=== PATIENT | female | born 1935 | race Caucasian/White ===

== ENCOUNTER 2016-06-01 09:38 | Emergency (ER) | payer MEDICARE, OTHER ==
--- NOTE | 2016-06-01 11:46 | ER Document Report ---
ED General - General Mode of Arrival: Ambulatory Information source: Patient, Relative - daughter TRAVEL OUTSIDE OF THE [place] IN LAST 30 DAYS: No - HPI Patient complains to provider of: right lower back pain Onset: Last week Associated symptoms: Other - See above <JACKIE SOUTH - Last Filed: 06/01/16 11:37> <RAFAELMARY LOU AnnJUDY - Last Filed: 06/01/16 14:18> - General Chief Complaint: Low Back Pain Stated Complaint: right low back pain Notes: Patient is a 80 year old female who presents to the emergency department complaining of right sided lower back pain onset 1 week ago. Patient states that she began to feel "not right" and nauseated about 2 weeks ago (denies vomiting) and she didn't experience much pain until last Thursday. Patient saw her PCP on Thursday and ruled out UTI, patient was told to change her 1 Ibuprofen a day to 2 a day and to apply a hot pad. Patient reports that the pain eased but became much worse on Thursday. Patient describes the pain as waxing and waning causing her to not be able to sit still, when it does come on it radiates into her right lower quadrant and abdomen and when she takes a deep breath she feels pain in her right upper quadrant. PCP: Dr. Enciso (JACKIE SOUTH) - Related Data Allergies/Adverse Reactions: kiwi [Kiwi (Actinidia Chinensis)] Allergy (Unknown, Verified 03/22/14 16:05) Anaphylaxis latex [Latex] Allergy (Unknown, Verified 03/22/14 16:05) Past Medical History - General Information source: Patient - Social History Smoking Status: Never Smoker Frequency of alcohol use: None Drug Abuse: None Lives with: Alone Family History: Reviewed & Not Pertinent Patient has suicidal ideation: No Patient has homicidal ideation: No - Past Medical History Cardiac Medical History: Reports: Hx Hypertension - CONTROLLED Past Surgical History: Reports: Hx Hysterectomy, Hx Orthopedic Surgery - right knee <JACKIE SOUTH - Last Filed: 06/01/16 11:37> Review of Systems - Review of Systems Constitutional: No symptoms reported EENT: No symptoms reported Cardiovascular: No symptoms reported Respiratory: No symptoms reported Gastrointestinal: See HPI, Abdominal pain, Nausea. denies: Vomiting Genitourinary: See HPI, Flank pain Female Genitourinary: No symptoms reported Musculoskeletal: See HPI, Back pain Skin: No symptoms reported Hematologic/Lymphatic: No symptoms reported Neurological/Psychological: No symptoms reported -: Yes All other systems reviewed and negative <JACKIE SOUTH - Last Filed: 06/01/16 11:37> Physical Exam - Vital signs Interpretation: Normal - General General appearance: Appears well, Alert - HEENT Head: Normocephalic, Atraumatic - Respiratory Respiratory status: No respiratory distress - Abdominal Inspection: Obese Distension: No distension Bowel sounds: Normal Tenderness: Nontender Organomegaly: No organomegaly - Back Back: Tender - Tenderness to palpation of lower right flank lumbar lateral area and over iliac crest - Extremities General upper extremity: Normal inspection, Normal ROM, Normal strength General lower extremity: Normal inspection, Normal ROM, Normal strength, Normal weight bearing - Neurological Neuro grossly intact: Yes Cognition: Normal Orientation: AAOx4 [place] Coma Scale Eye Opening: Spontaneous [place] Coma Scale Verbal: Oriented [place] Coma Scale Motor: Obeys Commands [place] Coma Scale Total: 15 Speech: Normal Motor strength normal: LUE, RUE, LLE, RLE - Psychological Associated symptoms: Normal affect, Normal mood - Skin Skin Temperature: Warm Skin Moisture: Dry Skin Color: Normal <JACKIE SOUTH - Last Filed: 06/01/16 11:37> - Back Back: Other - No skin rash to suggest shingles. <JUDY HALL - Last Filed: 06/01/16 14:18> - Vital signs Vitals: Pulse Resp BP Pulse Ox 76 18 170/66 H 94 06/01/16 09:50 06/01/16 09:50 06/01/16 09:50 06/01/16 09:50 (JACKIE SOUTH) (JUDY HALL) Course - Laboratory Result Diagrams: 06/01/16 12:05 06/01/16 12:05 <JUDY HALL - Last Filed: 06/01/16 14:18> - Vital Signs Vital signs: Temp Pulse Resp BP Pulse Ox 98.7 F 76 18 170/66 H 94 06/01/16 09:54 06/01/16 09:50 06/01/16 09:50 06/01/16 09:50 06/01/16 09:50 (JACKIE SOUTH) (JUDY HALL) - Laboratory Laboratory results interpreted by me: 06/01/16 12:05 Chloride 96 L Carbon Dioxide 31 H Calcium 10.8 H (JUDY HALL) Discharge <BRANNONJACKIE - Last Filed: 06/01/16 11:37> <JUDY HALL - Last Filed: 06/01/16 14:18> - Discharge Clinical Impression: Right flank pain, Aneurysm of infrarenal abdominal aorta Condition: Stable Disposition: HOME, SELF-CARE Additional Instructions: Flank Pain: We weren't able to prove an exact cause for your flank pain. Pain in the flank can be caused by a muscle strain or spasm. Sometimes a kidney stone causes pain, but can't be found on our tests. Infection in the kidney should be evident on a urine test. Early shingles can occasionally cause flank pain, without the rash that proves the diagnosis. On rare occasions, disease of the pancreas, aorta, spleen, or colon can create pain in the flank. At this time, there's no evidence of a dangerous condition, and it seems safe for you to be at home. If the pain goes away and does not come back, no further testing will be needed. If pain persists, or becomes more severe, we may need to repeat some tests or order additional new testing. Blood in the urine, urgency to urinate frequently, and pain that radiates to the groin can indicate a kidney stone. Fever may mean that the pain is due to infection, either of the kidney or the colon (diverticulitis). If your pain is early shingles, you should develop an eruption of blisters in the painful area within a few days. Call the doctor or return if you have pain that is spreading or becoming more severe, pain that does not resolve with time, fever, or any other new symptoms. YOUR CT SCAN SHOWS A 2.4cm INFRA-RENAL AORTIC SACCULAR ANEURYSM. THERE WERE NO ABNORMALITIES TO EXPLAIN YOUR PAIN. THE PHYSICAL EXAM SUGGESTS THE PAIN IS COMING FROM THE FLANK AND LUMBAR MUSCLES. TAKE THE MEDICATIONS PRESCRIBED FOR PAIN AND MUSCLE SPASM. TRY MOIST HEAT TO THE PAINFUL MUSCLES. FOLLOW UP WITH DR. STEVENS THIS WEEK FOR RECHECK AND TO REVIEW YOUR CT SCAN AND LAB WORK. RETURN TO THE EMERGENCY ROOM IF ANY NEW OR WORSENING SYMPTOMS. Prescriptions: Cyclobenzaprine HCl [Flexeril 5 mg Tablet] 5 mg PO TID PRN #15 tablet PRN Reason: Oxycodone HCl/Acetaminophen [Percocet 5-325 mg Tablet] 1 tab PO ASDIR PRN #15 tablet PRN Reason: Referrals: SADI STEVENS MD [Primary Care Provider] - Follow up as needed Scribe Attestation: 06/01/16 14:18 I personally performed the services described in the documentation, reviewed and edited the documentation which was dictated to the scribe in my presence, and it accurately records my words and actions. (JUDY HALL) Scribe Documentation - Scribe Written by Rolo:: rolo Braun, 06/01/16, 1150 acting as scribe for :: Rafael <JACKIE SOUTH - Last Filed: 06/01/16 11:37>
[2016-06-01 12:14] LABS: ABSOLUTE BASOPHILS # (AUTO) 0.1 10^3/uL (0.0-0.2); ABSOLUTE EOSINOPHILS # (AUTO) 0.1 10^3/uL (0.0-0.6); ABSOLUTE LYMPHOCYTES (AUTO) 2.4 10^3/uL (0.5-4.7); ABSOLUTE MONOCYTES (AUTO) 1.2 10^3/uL (0.1-1.4); ABSOLUTE NEUT (AUTO) 6.5 10^3/uL (1.7-8.2); BASOPHILS % (AUTO) 0.7 % (0-2); EOSINOPHILS % (AUTO) 0.6 % (0-6); HEMATOCRIT 43.7 % (36.0-47.0); HEMOGLOBIN 14.7 g/dL (12.0-15.5); HGB HCT DIFFERENCE 0.4; LYMPHOCYTES % (AUTO) 23.2 % (13-45); MEAN CORPUSCULAR HGB CONC 33.6 g/dL (32.0-36.0); MEAN CORPUSCULAR VOLUME 92 fl (80-97); MONOCYTES % (AUTO) 11.6 % (3-13); RED BLOOD COUNT 4.74 10^6/uL (3.72-5.28); RED CELL DISTRIBUTION WIDTH 13.1 % (11.5-14.0); SEGMENTED NEUTROPHILS % (AUTO) 63.9 % (42-78); WHITE BLOOD COUNT 10.2 10^3/uL (4.0-10.5)
[2016-06-01 12:24] LABS: APPEARANCE,URINE CLEAR; BILIRUBIN,URINE NEGATIVE (NEGATIVE); GLUCOSE, URINE NEGATIVE (NEGATIVE); KETONES,URINE NEGATIVE (NEGATIVE); LEUKOCYTE ESTERASE,URINE NEGATIVE (NEGATIVE); NITRITE,URINE NEGATIVE (NEGATIVE); PROTEIN,URINE NEGATIVE (NEGATIVE); URINE SPECIFIC GRAVITY 1.006; UROBILINOGEN,URINE NEGATIVE mg/dL (<2.0)
[2016-06-01 12:35] LABS: ALANINE AMINOTRANSFERASE 29 U/L (9-52); ALBUMIN 4.5 g/dL (3.5-5.0); ALKALINE PHOSPHATASE 63 U/L (38-126); ANION GAP 15 (5-19); ASPARTATE AMINO TRANSFERASE 30 U/L (14-36); BILIRUBIN,TOTAL 0.7 mg/dL (0.2-1.3); BLOOD UREA NITROGEN 15 mg/dL (7-20); CALCIUM 10.8 mg/dL (8.4-10.2); CARBON DIOXIDE 31 mmol/L (22-30); CHLORIDE 96 mmol/L (98-107); CREATINE KINASE 37 U/L (30-135); CREATININE RESULT 0.55 mg/dL (0.52-1.25); GLUCOSE 109 mg/dL (75-110); LIPASE 90.7 U/L (23-300); POTASSIUM 3.6 mmol/L (3.6-5.0)
[2016-06-01 14:31] VITALS: BP 155/77
== END 2016-06-01 14:29 | disposition home or self-care (01) ==
LOC: ER 09:38
DX: I71.4 Abdominal aortic aneurysm, without rupture (principal); M54.5 Low back pain; R10.11 Right upper quadrant pain; R11.0 Nausea; I10 Essential (primary) hypertension; Z91.040 Latex allergy status; Z87.892 Personal history of anaphylaxis; Z91.018 Allergy to other foods; Z90.710 Acquired absence of both cervix and uterus
CPT/HCPCS: 36415; 76380; 80053; 81001; 82550; 82553; 83690; 85025; 99284

== ENCOUNTER 2017-04-04 14:17 | Observation (INO) | payer MEDICARE, OTHER ==
--- NOTE | 2017-04-04 14:24 | ER Document Report ---
ED Medical Screen (RME) - General Stated Complaint: STROK LIKE SYMPTOMS Time Seen by Provider: 04/04/17 14:21 TRAVEL OUTSIDE OF THE [place] IN LAST 30 DAYS: No - HPI Notes: 04/04/17 14:23 Patient coming in for intermittent slurred speech that has improved and then reappeared multiple times throughout the day. Called to the pivot dentist to evaluate the patient for ongoing stroke. Cranial nerves II through XII are intact patient is moving all 4 extremities no asymmetrical smile no slurred speech at this time. Stroke protocol will be placed in however at this time patient does not meet strict criteria as that looks like symptoms have resolved. - Related Data Allergies/Adverse Reactions: kiwi [Kiwi (Actinidia Chinensis)] Allergy (Unknown, Verified 03/22/14 16:05) Anaphylaxis latex [Latex] Allergy (Unknown, Verified 03/22/14 16:05) Past Medical History - Past Medical History Cardiac Medical History: Reports: Hx Hypertension - CONTROLLED Denies: Hx Heart Attack Pulmonary Medical History: Denies: Hx Asthma Neurological Medical History: Denies: Hx Cerebrovascular Accident, Hx Seizures Renal/ Medical History: Denies: Hx Peritoneal Dialysis GI Medical History: Denies: Hx Hepatitis, Hx Hiatal Hernia, Hx Ulcer Infectious Medical History: Denies: Hx Hepatitis Past Surgical History: Reports: Hx Hysterectomy, Hx Orthopedic Surgery - right knee. Denies: Hx Mastectomy, Hx Open Heart Surgery, Hx Pacemaker Review of Systems - Review of Systems Constitutional: No symptoms reported EENT: No symptoms reported Cardiovascular: No symptoms reported Respiratory: No symptoms reported Gastrointestinal: No symptoms reported Genitourinary: No symptoms reported Female Genitourinary: No symptoms reported Musculoskeletal: No symptoms reported Skin: No symptoms reported Hematologic/Lymphatic: No symptoms reported Neurological/Psychological: Speech impairment Physical Exam - Neurological Neuro grossly intact: Yes Cognition: Normal Orientation: AAOx4 [place] Coma Scale Eye Opening: Spontaneous [place] Coma Scale Verbal: Oriented [place] Coma Scale Motor: Obeys Commands [place] Coma Scale Total: 15 Speech: Normal Cranial nerves: Normal Motor strength normal: LUE, RUE, LLE, RLE 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
--- NOTE | 2017-04-04 14:49 | RADIOLOGY REPORT (SQ) ---
EXAM DESCRIPTION: CHEST SINGLE VIEW COMPLETED DATE/TIME: 04/04/2017 2:38 pm REASON FOR STUDY: cxr COMPARISON: 2010 NUMBER OF VIEWS: One view. TECHNIQUE: Single frontal radiographic view of the chest acquired. LIMITATIONS: None. FINDINGS: LUNGS AND PLEURA: No opacities, masses or pneumothorax. No pleural effusion. MEDIASTINUM AND HILAR STRUCTURES: No masses. Contour normal. HEART AND VASCULAR STRUCTURES: Heart normal in size. Normal vasculature. BONES: No acute findings. HARDWARE: None in the chest. OTHER: No other significant finding. IMPRESSION: NO SIGNIFICANT RADIOGRAPHIC FINDING IN THE CHEST. TECHNICAL DOCUMENTATION: JOB ID: [id number] [employer]- All Rights Reserved
--- NOTE | 2017-04-04 15:01 | RADIOLOGY REPORT (SQ) ---
EXAM DESCRIPTION: CT HEAD WITHOUT COMPLETED DATE/TIME: 04/04/2017 2:52 pm REASON FOR STUDY: Intermittent slurred speech COMPARISON: None. TECHNIQUE: Axial images acquired through the brain without intravenous contrast. Images reviewed wi th bone, brain and subdural windows. Images stored on PACS. All CT scanners at this facility use dose modulation, iterative reconstruction, and/or weight based d osing when appropriate to reduce radiation dose to as low as reasonably achievable (ALARA). [facility]: Dose Right [facility]: CareDose [facility]: Dose Right [facility]: Teradose 4D [facility]: [employer] RADIATION DOSE: CT Rad equipment meets quality standard of care and radiation dose reduction techniq ues were employed. CTDIvol: 64.6 mGy. DLP: 1163 mGy-cm. mGy. LIMITATIONS: None. FINDINGS: VENTRICLES: Normal size and contour. CEREBRUM: No masses. No hemorrhage. No midline shift. No evidence for acute infarction. Mild low d ensity in the anterior limb right internal capsule and in the external capsule on the left. Probably reflective of chronic small vessel disease. CEREBELLUM: No masses. No hemorrhage. No alteration of density. No evidence for acute infarction. EXTRAAXIAL SPACES: No fluid collections. No masses. ORBITS AND GLOBE: No intra- or extraconal masses. Normal contour of globe without masses. CALVARIUM: No fracture. PARANASAL SINUSES: Mild dependent left maxillary sinus disease. SOFT TISSUES: No mass or hematoma. OTHER: No other significant finding. IMPRESSION: 1. Suspect chronic small vessel changes. No acute intracranial abnormality detected. 2 . Mild left paranasal sinus disease. EVIDENCE OF ACUTE STROKE: NO. COMMENT: Quality ID # [id number]: Final reports with documentation of one or more dose reduction techniques (e.g., Automated exposure control, adjustment of the mA and/or kV according to patient size, use of iterative reconstruction technique) TECHNICAL DOCUMENTATION: JOB ID: [id number] [employer]- All Rights Reserved
[2017-04-04 15:27] LABS: ABSOLUTE BASOPHILS # (AUTO) 0.1 10^3/uL (0.0-0.2); ABSOLUTE EOSINOPHILS # (AUTO) 0.1 10^3/uL (0.0-0.6); ABSOLUTE LYMPHOCYTES (AUTO) 2.3 10^3/uL (0.5-4.7); ABSOLUTE MONOCYTES (AUTO) 0.5 10^3/uL (0.1-1.4); ABSOLUTE NEUT (AUTO) 4.7 10^3/uL (1.7-8.2); BASOPHILS % (AUTO) 0.8 % (0-2); EOSINOPHILS % (AUTO) 1.1 % (0-6); HEMATOCRIT 38.8 % (36.0-47.0); HEMOGLOBIN 13.5 g/dL (12.0-15.5); HGB HCT DIFFERENCE 1.7; LYMPHOCYTES % (AUTO) 29.8 % (13-45); MEAN CORPUSCULAR HEMOGLOBIN 31.8 pg (27.0-33.4); MEAN CORPUSCULAR HGB CONC 34.7 g/dL (32.0-36.0); MEAN CORPUSCULAR VOLUME 92 fl (80-97); MONOCYTES % (AUTO) 6.9 % (3-13); RED BLOOD COUNT 4.23 10^6/uL (3.72-5.28); RED CELL DISTRIBUTION WIDTH 12.9 % (11.5-14.0); SEGMENTED NEUTROPHILS % (AUTO) 61.4 % (42-78); WHITE BLOOD COUNT 7.6 10^3/uL (4.0-10.5)
[2017-04-04 15:31] LABS: PROTHROMBIN TIME 12.8 SEC (11.4-15.4)
[2017-04-04 15:32] LABS: PARTIAL THROMBOPLASTIN TIME 34.1 SEC (23.5-35.8)
[2017-04-04 15:41] LABS: ALANINE AMINOTRANSFERASE 33 U/L (9-52); ALBUMIN 4.2 g/dL (3.5-5.0); ALKALINE PHOSPHATASE 66 U/L (38-126); ANION GAP 16 (5-19); ASPARTATE AMINO TRANSFERASE 23 U/L (14-36); BILIRUBIN,DIRECT 0.3 mg/dL (0.0-0.4); BILIRUBIN,TOTAL 0.4 mg/dL (0.2-1.3); BLOOD UREA NITROGEN 17 mg/dL (7-20); CALCIUM 9.4 mg/dL (8.4-10.2); CARBON DIOXIDE 28 mmol/L (22-30); CHLORIDE 100 mmol/L (98-107); CREATINE KINASE 72 U/L (30-135); CREATININE RESULT 0.73 mg/dL (0.52-1.25); GLUCOSE 170 mg/dL (75-110); POTASSIUM 3.7 mmol/L (3.6-5.0); SODIUM 143.8 mmol/L (137-145); TOTAL PROTEIN 6.7 g/dL (6.3-8.2)
[2017-04-04 15:53] LABS: CREATINE KINASE MB 1.48 ng/mL (<4.55)
[2017-04-04 15:54] LABS: TROPONIN I < 0.012 ng/mL
[2017-04-04 16:30] LABS: APPEARANCE,URINE CLEAR; BILIRUBIN,URINE NEGATIVE (NEGATIVE); GLUCOSE, URINE NEGATIVE (NEGATIVE); KETONES,URINE NEGATIVE (NEGATIVE); LEUKOCYTE ESTERASE,URINE MODERATE (NEGATIVE); NITRITE,URINE NEGATIVE (NEGATIVE); PROTEIN,URINE NEGATIVE (NEGATIVE); URINE SPECIFIC GRAVITY 1.011; UROBILINOGEN,URINE NEGATIVE mg/dL (<2.0)
[2017-04-04 16:39] LABS: URINE BARBITURATES SCREEN NEGATIVE; URINE METHADONE SCREEN NEGATIVE; URINE OPIATES LOW NEGATIVE; URINE PHENCYCLIDINE SCREEN NEGATIVE
--- NOTE | 2017-04-04 16:39 | ER Document Report ---
ED Neuro Symptoms/Deficit - General Chief Complaint: S/S of Possible Stroke Stated Complaint: STROK LIKE SYMPTOMS Time Seen by Provider: 04/04/17 14:21 Notes: Patient thinks she might be having a stroke. She noticed that her speech seemed slurred this morning about 10 AM. She then had some problems controlling her hands. She called EMS and they evaluated her and offered to bring her to the emergency room, but she felt better and declined. Then about 1 :00, she dropped a cap and tried to pick it up and he kept slipping through her fingers. She had a recurrent episode of slurring of her speech, as well. [place] lightheaded. Brought to the emergency department. Denies any headache. Has never had a stroke or strokelike symptoms. Denies any chest pains. Denies cough or cold or chest congestion or URI symptoms. No UTI symptoms. No fevers. TRAVEL OUTSIDE OF THE [place] IN LAST 30 DAYS: No - Related Data Allergies/Adverse Reactions: kiwi [Kiwi (Actinidia Chinensis)] Allergy (Unknown, Verified 04/04/17 14:24) Anaphylaxis latex [Latex] Allergy (Unknown, Verified 04/04/17 14:24) Past Medical History - Social History Smoking Status: Never Smoker Chew tobacco use (# tins/day): No Frequency of alcohol use: None Drug Abuse: None Family History: Reviewed & Not Pertinent Patient has suicidal ideation: No Patient has homicidal ideation: No - Past Medical History Cardiac Medical History: Reports: Hx Hypercholesterolemia, Hx Hypertension - CONTROLLED Pulmonary Medical History: Denies: Hx Asthma Neurological Medical History: Denies: Hx Cerebrovascular Accident Endocrine Medical History: Denies: Hx Diabetes Mellitus Type 1, Hx Diabetes Mellitus Type 2 Past Surgical History: Reports: Hx Hysterectomy, Hx Orthopedic Surgery - right knee Review of Systems - Review of Systems Notes: REVIEW OF SYSTEMS: CONSTITUTIONAL : Denies fever. EENT: Denies eye, ear, nose or mouth or throat pain or other symptoms. CARDIOVASCULAR: Denies chest pain. 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 She is followed by her primary care provider , for this condition. RESPIRATORY: Denies cough, chest congestion, or shortness of breath. GASTROINTESTINAL: Denies abdominal pain or nausea, vomiting, or diarrhea. GENITOURINARY: Denies difficulty or painful urinating, urinary frequency, blood in urine. MUSCULOSKELETAL: Denies back or neck pain. Denies joint pain or swelling. SKIN: Denies rash or skin lesions. NEUROLOGICAL: Denies LOC or altered mental status. Denies headache. See HPI. ALL OTHER SYSTEMS REVIEWED AND NEGATIVE. Physical Exam - Vital signs Vitals: Temp Pulse Resp BP Pulse Ox 97.8 F 93 16 194/75 H 96 04/04/17 14:17 04/04/17 14:17 04/04/17 14:17 04/04/17 14:17 04/04/17 14:17 Interpretation: Hypertensive - Notes Notes: PHYSICAL EXAMINATION: GENERAL: Well-appearing, in no acute distress. Hypertensive, otherwise vital signs essentially normal. HEAD: Atraumatic, normocephalic. EYES: Pupils equal round and reactive to light, extraocular movements intact. ENT: oropharynx clear without exudates. Moist mucous membranes. NECK: Normal range of motion, supple. No carotid bruits heard. LUNGS: Breath sounds clear and equal bilaterally. HEART: Regular rate and rhythm without murmurs. ABDOMEN: Soft, nontender. No guarding or rebound. BACK: No tenderness throughout entire back. EXTREMITIES: Normal range of motion without pain. NEUROLOGICAL: Normal speech, although on my second visit to the patient's room , her speech did seem to be slightly slurred. She even notices that it does not sound quite normal to her. Normal sensory, motor, and reflex exams. Awake , alert, and oriented x3. Cranial nerves normal. PSYCH: Normal mood, normal affect. SKIN: Warm, dry, no rashes. Course - Re-evaluation Re-evalutation: 04/04/17 16:40 Patient symptoms have resolved, and her CT scan is normal and her lab work is essentially normal. Patient is probably having some form of a TIA and have advised her that she needs to spend the night or 2 to get further evaluated and properly medicated for this condition. 04/04/17 16:41 Patient does not meet criteria for thrombolytics. She is well past the time window to receive this medication, even if it was clinically indicated. Discussed with hospitalist who will admit the patient for observation. 04/04/17 16:42 - Vital Signs Vital signs: Temp Pulse Resp BP Pulse Ox 97.8 F 93 18 194/75 H 97 04/04/17 14:17 04/04/17 14:17 04/04/17 15:07 04/04/17 14:17 04/04/17 15:17 - Laboratory Result Diagrams: 04/04/17 15:14 04/04/17 15:14 Laboratory results interpreted by me: 04/04/17 15:14 Glucose 170 H - Diagnostic Test Radiology reviewed: Image reviewed, Reports reviewed - CT of the brain is normal. - EKG Interpretation by Me EKG shows normal: Sinus rhythm Rate: Normal Rhythm: NSR - At 84 Discharge - Discharge Clinical Impression: TIA (transient ischemic attack), Hypertension Condition: Stable Disposition: ADMITTED OBSERVATION Admitting Provider: Hospitalist Unit Admitted: Telemetry Referrals: SADI STEVENS MD [Primary Care Provider] - Follow up as needed
[2017-04-04] MEDS ORDERED: ASPIRIN 81 MG TABLET, CHEWABLE PO ONE (16:47)
[2017-04-04] MEDS ORDERED: ACETAMINOPHEN 325 MG TABLET PO PRN (17:12)
[2017-04-04] MEDS ORDERED: ONDANSETRON 4 MG TAB.RAPDIS PO PRN (17:12)
[2017-04-04] MEDS ORDERED: ONDANSETRON HCL INJ/PF 4 MG/2 ML SDV IV PRN (17:12)
[2017-04-04] MEDS ORDERED: DEXTROSE 50%-WATER 25 GM/50 ML DISP.SYRIN IV PRN ×2 (17:20)
[2017-04-04] MEDS ORDERED: GLUCAGON,HUMAN RECOMB 1 MG INJ IM PRN (17:20)
[2017-04-04] MEDS ORDERED: INSULIN LISPRO 100 UNIT/ML 3 ML VIAL SUBCUT PRN (17:20)
[2017-04-04] MEDS ORDERED: DEXTROSE 40% GEL 15 GM TUBE PO PRN ×2 (17:20)
--- NOTE | 2017-04-04 17:28 | PDOC H&P ---
History of Present Illness Admission Date/PCP: 04/04/17 16:49 SADI STEVENS MD Patient complains of: Slurred speech History of Present Illness: JEANNE SANTOYO is a 81 year old female who has a history of hypertension and hyperlipidemia who presents with slurred speech. Patient reports that she was eating lunch and began to have some slurred speech. She also had some difficulty with some spasms of both her bilateral upper extremities. The patient's granddaughter was concerned that she was having a stroke and 911 was called. She was seen by the ambulance and she declined transport at that time. She had had resolution of her symptoms at that time. About an hour later she had another episode of slurred speech and was having difficulty using her right hand and had difficulty picking up an object from the floor with her right hand. The patient was then brought in the hospital. She has had resolution of her symptoms at this time. She had a head CT that was unremarkable. The patient did take 2 baby aspirin prior to coming in. She does not normally take aspirin. She does take a statin for her hyperlipidemia. The patient denies any loss of consciousness. Denies any visual changes. She denies any leg weakness. She denies any sensory changes. Past Medical History Cardiac Medical History: Reports: Hyperlipidema, Hypertension - CONTROLLED, Other - Abdominal aortic aneurysm Denies: Myocardial Infarction Pulmonary Medical History: Reports: None EENT Medical History: Reports: Cataracts Neurological Medical History: Denies: Seizures Endocrine Medical History: Denies: Diabetes Mellitus Type 1, Diabetes Mellitus Type 2 Renal/ Medical History: Reports: None Malignancy Medical History: Reports: None GI Medical History: Denies: Hepatitis, Hiatal Hernia Musculoskeltal Medical History: Reports: None Psychiatric Medical History: Reports: None Traumatic Medical History: Reports: None Hematology: Denies: Anemia, Sickle Cell Disease Infectious Medical History: Reports: None Past Surgical History Past Surgical History: Reports: Hysterectomy, Orthopedic Surgery - right knee Denies: Amputation, Mastectomy, Pacemaker Social History Information Source: Patient Lives with: Family Smoking Status: Never Smoker Frequency of Alcohol Use: Rare Hx Recreational Drug Use: No Drugs: None Hx Prescription Drug Abuse: No - Advance Directive Resuscitation Status: Do Not Resuscitate Family History Family History: Father at age 67 with a CVA. Mother at age 69 and had diabetes and coronary artery disease. She has already had a sister from a CVA. Parental Family History Reviewed: Yes Children Family History Reviewed: No Sibling(s) Family History Reviewed.: No Medication/Allergy Home Medications: Calcium Carbonate/Vitamin D3 [Os-Dimitris 500+D Tablet] 1 tab PO DAILY 03/06/14 Diltiazem HCl [Tiazac] 240 mg PO DAILY 03/06/14 Docusate Sodium [Colace 100 mg Capsule] 100 mg PO DAILY 03/06/14 Fluvastatin Sodium [Lescol Xl] 80 mg PO DAILY 03/06/14 [place]-3 Fatty Acids/Fish Oil [Fish Oil 1,000 Mg Capsule] 1 each PO DAILY Risedronate Sodium [Actonel 35 mg Tablet] 35 mg PO .QWK 03/06/14 Cyclobenzaprine HCl [Flexeril 5 mg Tablet] 5 mg PO TID PRN #15 tablet 06/01/16 Oxycodone HCl/Acetaminophen [Percocet 5-325 mg Tablet] 1 tab PO ASDIR PRN #15 tablet 06/01/16 Allergies/Adverse Reactions: kiwi [Kiwi (Actinidia Chinensis)] Allergy (Unknown, Verified 04/04/17 14:24) Anaphylaxis latex [Latex] Allergy (Unknown, Verified 04/04/17 14:24) Review of Systems Constitutional: ABSENT: chills, fever(s), headache(s), weight gain, weight loss Eyes: ABSENT: visual disturbances Ears: ABSENT: hearing changes Cardiovascular: ABSENT: chest pain, dyspnea on exertion, edema, orthropnea, palpitations Respiratory: ABSENT: cough, hemoptysis Gastrointestinal: ABSENT: abdominal pain, constipation, diarrhea, hematemesis, hematochezia, nausea, vomiting Genitourinary: ABSENT: dysuria, hematuria Musculoskeletal: ABSENT: joint swelling Integumentary: ABSENT: rash, wounds Neurological: PRESENT: as per HPI, abnormal speech, focal weakness Psychiatric: ABSENT: anxiety, depression Endocrine: ABSENT: cold intolerance, heat intolerance, polydipsia, polyuria Hematologic/Lymphatic: ABSENT: easy bleeding, easy bruising Physical Exam Vital Signs: Temp Pulse Resp BP Pulse Ox 97.8 F 93 20 194/75 H 96 04/04/17 14:17 04/04/17 15:30 04/04/17 15:30 04/04/17 15:30 04/04/17 15:30 General appearance: PRESENT: no acute distress, well-developed, well-nourished Head exam: PRESENT: atraumatic, normocephalic Eye exam: PRESENT: conjunctiva pink, EOMI, PERRLA. ABSENT: scleral icterus Ear exam: PRESENT: normal external ear exam Mouth exam: PRESENT: moist, tongue midline Neck exam: ABSENT: carotid bruit, JVD, lymphadenopathy, thyromegaly Respiratory exam: PRESENT: clear to auscultation pat. ABSENT: rales, rhonchi, wheezes Cardiovascular exam: PRESENT: RRR. ABSENT: diastolic murmur, rubs, systolic murmur Pulses: PRESENT: normal dorsalis pedis pul Vascular exam: PRESENT: normal capillary refill GI/Abdominal exam: PRESENT: normal bowel sounds, soft. ABSENT: distended, guarding, mass, organolmegaly, rebound, tenderness Rectal exam: PRESENT: deferred Extremities exam: ABSENT: calf tenderness, clubbing, pedal edema Neurological exam: PRESENT: alert, awake, oriented to person, oriented to place , oriented to time, oriented to situation, CN II-XII grossly intact. ABSENT: motor sensory deficit Psychiatric exam: PRESENT: appropriate affect Skin exam: PRESENT: dry, intact, warm. ABSENT: cyanosis, rash Results Impressions: Chest X-Ray 04/04/17 14:22 IMPRESSION: NO SIGNIFICANT RADIOGRAPHIC FINDING IN THE CHEST. Head CT 04/04/17 14:22 IMPRESSION: 1. Suspect chronic small vessel changes. No acute intracranial abnormality detected. 2. Mild left paranasal sinus disease. EVIDENCE OF ACUTE STROKE: NO. Assessment & Plan - Diagnosis (1) TIA (transient ischemic attack) Is this a current diagnosis for this admission?: Yes Plan: The patient has slurred speech along with some right hand weakness. All her symptoms have resolved. The patient will be started on aspirin 81 mg daily. She already is on a statin. Will obtain MRI of the brain as well as carotid Dopplers. She has not had any history of cardiac arrhythmias but we will monitor on telemetry. If she has any cardiac arrhythmias we will get an echocardiogram. (2) Hyperglycemia Is this a current diagnosis for this admission?: Yes Plan: Patient has no previous history of diabetes. Will check fingerstick blood sugars and monitor closely. (3) Hyperlipidemia Is this a current diagnosis for this admission?: Yes Plan: Continue with the Lescol. (4) Abdominal aortic aneurysm Is this a current diagnosis for this admission?: Yes Plan: Asymptomatic (5) Osteoporosis Is this a current diagnosis for this admission?: Yes Plan: Patient is on Reclast monthly (6) Hypertension Is this a current diagnosis for this admission?: Yes Plan: She has been taking diltiazem. (7) DNR (do not resuscitate) Is this a current diagnosis for this admission?: Yes Plan: Patient requests to be a DO NOT RESUSCITATE. Her children are present at the bedside for this discussion. - Time Time Spent: 50 to 70 Minutes - Plan Summary Plan Summary: We will admit as an observation as I anticipate this require less than 2 midnight hospital stay.
--- NOTE | 2017-04-04 20:39 | RADIOLOGY REPORT (SQ) ---
EXAM DESCRIPTION: MRI HEAD WITHOUT COMPLETED DATE/TIME: 04/04/2017 8:01 pm REASON FOR STUDY: tia COMPARISON: None. TECHNIQUE: Multiplanar imaging includes non-contrasted T1, T2, FLAIR, and Diffusion with ADC map seq uences. Images stored on PACS. LIMITATIONS: None. FINDINGS: ANATOMY: No anomalies. Normal vascular flow voids. Pituitary fossa normal. CSF SPACES: Normal in size and contour. No hemorrhage. CEREBRUM: A few high-signal intensity lesions scattered throughout the white matter on FLAIR imaging with distribution suggesting chronic micro-vascular ischemic change. A new right internal capsule la cunar infarct is present. Sulci and gyri normal in size and contour. No evidence of hemorrhage, mas s or extraaxial fluid collection. POSTERIOR FOSSA: No signal alteration. No hemorrhage. No edema, masses or mass effect. Internal mandi tory canals, cerebello-pontine angles, mastoids normal. DIFFUSION: Negative for acute or sub-acute infarction. ORBITS: No masses. Globes normal. PARANASAL SINUSES: Left maxillary sinusitis. OTHER: No other significant finding. IMPRESSION: Mild microvascular ischemic change. Left maxillary sinusitis. No evidence of acute or subacute ischemic injury. EVIDENCE OF ACUTE STROKE: NO. TECHNICAL DOCUMENTATION: JOB ID: [id number] [employer]- All Rights Reserved
[2017-04-04] MEDS: FAMOTIDINE 20 MG TABLET PO SCH (22:10)
[2017-04-05] MEDS: FAMOTIDINE 20 MG TABLET PO SCH (09:15)
[2017-04-05] MEDS ORDERED: ASPIRIN 81 MG TABLET, ENT COATED PO SCH (10:00)
[2017-04-05] MEDS ORDERED: FLUVASTATIN SODIUM 80 MG PO SCH (10:00)
--- NOTE | 2017-04-05 11:01 | PDOC DISCHARGE SUMMARY ---
General - Admit/Disc Date/PCP Admission Date/Primary Care Provider: 04/04/17 16:49 SADI STEVENS MD Discharge Date: 04/05/17 - Discharge Diagnosis (1) TIA (transient ischemic attack) Is this a current diagnosis for this admission?: Yes Summary: Patient has been started on aspirin 81 mg daily. (2) Hyperglycemia Is this a current diagnosis for this admission?: Yes Summary: Patient had a blood sugar of 170 when she presented. All of her blood sugars have been normal. (3) Hyperlipidemia Is this a current diagnosis for this admission?: Yes (4) Abdominal aortic aneurysm Is this a current diagnosis for this admission?: Yes (5) Osteoporosis Is this a current diagnosis for this admission?: Yes (6) Hypertension Is this a current diagnosis for this admission?: Yes (7) DNR (do not resuscitate) Is this a current diagnosis for this admission?: Yes - Additional Information Resuscitation Status: Do Not Resuscitate Discharge Diet: Cardiac, Diabetic Discharge Activity: Activity As Tolerated Home Medications: Aspirin [Ecotrin 81 mg EC Tablet] 81 mg PO DAILY tabec 04/05/17 Calcium Carbonate/Vitamin D3 [Os-Dimitris 250 mg with Vitamin D 125 Units] 2 tab PO DAILY 04/05/17 Diltiazem HCl [Tiazac] 240 mg PO DAILY 04/05/17 Fluvastatin Sodium [Lescol Xl] 80 mg PO DAILY 04/05/17 Hydrochlorothiazide [Hydrodiuril 25 mg Tablet] 25 mg PO DAILY 04/05/17 Risedronate Sodium [Actonel 35 mg Tablet] 35 mg PO CARUSO@10 04/05/17 History of Present Illness History of Present Illness: JEANNE SANTOYO is a 81 year old female who has a history of hypertension and hyperlipidemia who presents with slurred speech. Patient reports that she was eating lunch and began to have some slurred speech. She also had some difficulty with some spasms of both her bilateral upper extremities. The patient's granddaughter was concerned that she was having a stroke and 911 was called. She was seen by the ambulance and she declined transport at that time. She had had resolution of her symptoms at that time. About an hour later she had another episode of slurred speech and was having difficulty using her right hand and had difficulty picking up an object from the floor with her right hand. The patient was then brought in the hospital. She has had resolution of her symptoms at this time. She had a head CT that was unremarkable. The patient did take 2 baby aspirin prior to coming in. She does not normally take aspirin. She does take a statin for her hyperlipidemia. The patient denies any loss of consciousness. Denies any visual changes. She denies any leg weakness. She denies any sensory changes. Hospital Course Hospital Course: 81-year-old female who presented with some slurred speech and arm weakness. She has had complete resolution of the symptoms. The patient had a head CT that was unremarkable. MRI also showed no acute event. The patient had an carotid Doppler ordered however we are unable to do because it is the weekend. The patient will get this scheduled as an outpatient. The patient had not been taking aspirin prior to this episode. She has been started on a baby aspirin she will continue with that. Patient also was noted to have a high blood sugar of 170 when she presented. Fingerstick blood sugars done after that have been normal. She is instructed to watch her diet and follow-up with her primary care doctor in regards to her hyperglycemia. The patient already was on a statin and she will continue with that. Patient will follow up with her primary care in 1-2 weeks. Physical Exam Vital Signs: Temp Pulse Resp BP Pulse Ox 97.8 F 63 17 156/66 H 93 04/05/17 07:39 04/05/17 08:00 04/05/17 08:00 04/05/17 08:00 04/05/17 08:00 Intake & Output 04/04/17 04/05/17 04/06/17 06:59 06:59 06:59 Intake Total 430 Balance 430 Weight 64.2 kg General appearance: PRESENT: no acute distress Eye exam: PRESENT: conjunctiva pink. ABSENT: scleral icterus Mouth exam: PRESENT: moist, tongue midline Neck exam: ABSENT: JVD Respiratory exam: PRESENT: clear to auscultation pat. ABSENT: rales, rhonchi, wheezes Cardiovascular exam: PRESENT: RRR. ABSENT: diastolic murmur, rubs, systolic murmur Vascular exam: PRESENT: normal capillary refill GI/Abdominal exam: PRESENT: normal bowel sounds, soft. ABSENT: distended, guarding, mass, organolmegaly, rebound, tenderness Extremities exam: ABSENT: calf tenderness, clubbing, pedal edema Neurological exam: PRESENT: alert, awake, oriented to person, oriented to place , oriented to time, oriented to situation, CN II-XII grossly intact. ABSENT: motor sensory deficit Psychiatric exam: PRESENT: appropriate affect Skin exam: PRESENT: dry, intact, warm. ABSENT: cyanosis, rash Results Laboratory Results: 04/04/17 20:17 Troponin I < 0.012 Impressions: Head MRI 04/04/17 00:00 IMPRESSION: Mild microvascular ischemic change. Left maxillary sinusitis. No evidence of acute or subacute ischemic injury. EVIDENCE OF ACUTE STROKE: NO. Chest X-Ray 04/04/17 14:22 IMPRESSION: NO SIGNIFICANT RADIOGRAPHIC FINDING IN THE CHEST. Head CT 04/04/17 14:22 IMPRESSION: 1. Suspect chronic small vessel changes. No acute intracranial abnormality detected. 2. Mild left paranasal sinus disease. EVIDENCE OF ACUTE STROKE: NO. Qualifiers PATEINT BEING DISCHARGED WITH ANY OF THE FOLLOWING DIAGNOSIS?: Stroke Stroke Pt being discharged on Anti-thrombolytic therapy?: Yes Stroke Pt being discharged on Anti-coagulation therapy?: No Reason(s) for not prescribing Anti-coagulation therapy:: Not indicated Stroke Pt being discharged on Statins?: Yes Plan Discharge Plan: Patient is discharged to home. Follow-up with primary care in 1-2 weeks. Time Spent: Less than 30 Minutes
[2017-04-05 12:03] VITALS: BP 170/75
[2017-04-05] MEDS ORDERED: ATORVASTATIN CALCIUM 20 MG TABLET PO SCH (22:00)
--- NOTE | 2017-04-06 06:00 | EKG REPORT ---
SEVERITY:- NORMAL ECG - SINUS RHYTHM : Confirmed by: Celia Diaz MD 06-Apr-2017 05:59:38
== END 2017-04-05 12:22 | disposition home or self-care (01) ==
LOC: ER 14:17 → EH 16:49 → 3W 18:57
PROVIDERS: ADMIT Internal Medicine; ATTEND Internal Medicine
DX: G45.9 Transient cerebral ischemic attack, unspecified (principal); R73.9 Hyperglycemia, unspecified; E78.5 Hyperlipidemia, unspecified; M81.0 Age-related osteoporosis without current pathological fracture; I71.4 Abdominal aortic aneurysm, without rupture; I10 Essential (primary) hypertension; Z66 Do not resuscitate; Z79.82 Long term (current) use of aspirin; Z79.899 Other long term (current) drug therapy; Z82.49 Family history of ischemic heart disease and other diseases of the circulatory system; Z82.3 Family history of stroke; Z83.3 Family history of diabetes mellitus
CPT/HCPCS: 93005; 99285; 36415; 82553; 82962 ×2; 82550; 85025; 85610; 85730; 80053; 81001; 84484; 80307; 70551; 71010; 70450; 93010; G0378 ×3; A9270 ×4; J3490 ×2

== ENCOUNTER → 2017-04-15 | Outpatient (CLI) | payer MEDICARE, OTHER ==
--- NOTE | 2017-04-15 12:47 | RADIOLOGY REPORT (SQ) ---
EXAM DESCRIPTION: CAROTID DOPPLER COMPLETED DATE/TIME: 04/15/2017 11:44 am REASON FOR STUDY: TIA G45.9 TRANSIENT CEREBRAL ISCHEMIC ATTACK, UNSPECIFIED COMPARISON: None. TECHNIQUE: Grayscale ultrasound, Doppler velocity and spectra, and color Doppler images acquired of the extra-cranial carotid and vertebral arteries. Images stored on PACS. LIMITATIONS: None. FINDINGS: RIGHT CAROTID CCA Velocities: Within normal limits. ICA Velocities Peak systolic 0.64 m/s. End diastolic 0.15 m/s. Proximal ICA/CCA peak systolic ratio 1.01. Spectra normal. No significant plaque. LEFT CAROTID CCA Velocities: Within normal limits. ICA Velocities Peak systolic 1.17 m/s. End diastolic 0.29 m/s. Proximal ICA/CCA peak systolic ratio 1.4. Spectra normal. No significant plaque. VERTEBRAL ARTERIES: Antegrade flow. Normal waveforms. SUBCLAVIAN ARTERIES: No finding. OTHER: No other significant finding. IMPRESSION: NO HEMODYNAMICALLY SIGNIFICANT STENOSIS. COMMENT: Quality ID #[id number]: Velocity criteria are extrapolated from the diameter data as defined by t he Society of Radiologists in Ultrasound Consensus Conference. Radiology 2003: 229; 340-346. TECHNICAL DOCUMENTATION: JOB ID: [id number] [employer]- All Rights Reserved
== END ==
LOC: SP 09:18
PROVIDERS: ATTEND Internal Medicine
DX: G45.9 Transient cerebral ischemic attack, unspecified (principal)
CPT/HCPCS: 93880